=== PATIENT | female | born 1985 | race Two or more races ===

== ENCOUNTER → 2020-08-07 | Outpatient (CLI) | payer OTHER ==
--- NOTE | 2020-08-07 15:31 | RAD ---
EXAM: Bilateral knees, standing view; right knee, 2 views. HISTORY: Pain. COMPARISON: None. FINDINGS: A standing view both knees and lateral and sunrise views of the right knee are obtained. Th ere is no fracture, dislocation or subluxation. There is no right knee effusion. IMPRESSION: No acute osseous finding. Electronically signed by: Maida Mccullough MD (08/07/2020 3:28 PM) [facility]
--- NOTE | 2020-08-07 15:31 | RAD ---
EXAM: Bilateral knees, standing view; right knee, 2 views. HISTORY: Pain. COMPARISON: None. FINDINGS: A standing view both knees and lateral and sunrise views of the right knee are obtained. Th ere is no fracture, dislocation or subluxation. There is no right knee effusion. IMPRESSION: No acute osseous finding. Electronically signed by: Maida Mccullough MD (08/07/2020 3:28 PM) [facility]
== END ==
LOC: DXRAD 14:06
PROVIDERS: ATTEND Physician Assistant
DX: M25.561 Pain in right knee (principal)
CPT/HCPCS: 73560; 73565

== ENCOUNTER → 2020-08-31 | Outpatient (CLI) | payer OTHER ==
--- NOTE | 2020-08-31 14:50 | RAD ---
EXAM: PA and Lateral Views of the Chest DATE: 08/31/2020 10:49 AM INDICATION: Reason: COUGH / Spl. Instructions: / History: COMPARISON: No Prior FINDINGS: The heart is not enlarged. Mediastinal and hilar contours are normal. No focal parenchymal airspace opacity. No pleural effusion or pneumothorax. S-shaped curvature thoracolumbar spine IMPRESSION: 1. No radiographic evidence for acute cardiopulmonary process. Electronically signed by: Andrés Draper MD (08/31/2020 2:47 PM) [id number]
== END ==
LOC: RAD 10:38
DX: R05 Cough (principal)
CPT/HCPCS: 71046